=== PATIENT | female | born 1985 | race Caucasian/White ===

== ENCOUNTER → 2018-03-20 12:29 | Observation (INO) ==
--- NOTE | 2018-03-20 09:49 | OB/GYN History & Physical ---
Date of Encounter: 03/20/18 Time of Encounter: 09:40 Assessment and Plan (1) Dehydration during Current visit: Yes Status: Acute 32yo at 29+2wks GA, TATY 06/03/2018, who presents for acute onset nausea, and lower abdominal pressure 1. R/o PTL - R&R NST for GA, no decels - toco quiet, no concern for PTL - SVE: cl/soft/hi, non-laboring, parous cervix - no blood or abnormal discharge appreciated in vault - denies recent intercourse, last seen on 03/10 - RH positive, remaining labs NINA 2. Dehydration in - given 1L IVF, will repeat if needed - labs ordered: UA with reflex, CHEM, UTox - meds: IV pepcid, ODT zofran - OK to po challenge once bolus complete and labs return Dispo: OK to DC patient pending lab values and completion of bolus. Will need to PO challenge. Once patient successful with above, OK to discharge to home with PTL precaution(s). MD SALLIE History of Present Illness Chief complaint: Nausea/vomiting HPI: Ms. Beltran is a 32 year old female 32yo female at 29+2wks GA who presents from home with persistent nausea. Patient is UTD with PNC via Dr. Vlilareal at [facility]. LAST SEEN on 03/10, s/p 28wk labs. Normal labs, Rh positive. Patient reports 24 hours of nausea, unable to tolerate PO. Has felt pressure below, but denies contraction(S). Hx of FT , not currently on progesterone. Reports good FM. Denies VB/LOF. Otherwise patient is uncomplicated without concern for PTL. Presents with FOB at bedside. Past Med Surg Social Fam HX - Past Medical History Medical history: non-contributory Additional medical history: brain bleed Psychiatric history: no psych history - Past Surgical History Additional surgical history: 2 D&C. surgery for brain bleed - Social History Smoking Status: 2nd Hand Smoke Exposure Smokeless Tobacco Status: No Alcohol use: none Drug use: none Obstetrical History - Pregnancies : 5 Para: 2 Term: 2 : 0 Ab's: 2 Livin Medications and Allergies Pnv Plus Multivit Tab 1 cap PO DAILY 10/25/17 [History] Zofran PO 3-4XD PRN 02/25/18 [History] Allergy/AdvReac Type Severity Reaction Status Date / Time Amoxicillin Allergy Rash Verified 02/25/18 09:43 aspirin [ASA] Allergy See Verified 02/25/18 09:43 Comments Penicillins [PCN] Allergy Hives Verified 02/25/18 09:43 Sulfa (Sulfonamide Allergy Hives Verified 02/25/18 09:43 Antibiotics) sulfamethoxazole Allergy Rash Verified 02/25/18 09:43 [From Bactrim] trimethoprim [From Bactrim] Allergy Rash Verified 02/25/18 09:43 NSAIDS (Non-Steroidal AdvReac See Verified 02/25/18 09:43 Anti-Inflamma Comments Review of System OB All systems PM: reviewed and no additional remarkable complaints except as stated Exam - Constitutional Constitutional: well developed, mild distress - HEENT HEENT: Normocephaly, Mucus Membranes Moist - Neck Neck exam: full ROM - Abdomen Abdomen: Present: gravid, non tender - Extremities Extremities exam: radial pulses palpable and symmetrical Deep Tendon Reflex Grade: 2+ Normal - Vagina Vagina: Present: normal moisture - Cervix Dilation: 0 Effacement: 50 Station: -3 - Uterus Uterus exam: Present: normal size - Anus/Rectum Anus/Rectum: Present: normal perianal skin Results All other labs normal. - VTE Reasons for not Prescribing Prophylaxis: Treatment not Indicated - Low risk for VTE
[2018-03-20 11:19] LABS: Bilirubin,Urine Negative (Negative); Blood,Urine Negative (Negative); Clarity,Urine Clear (Clear); Color,Urine Yellow (Yellow); Glucose,Urine (UA) Normal (Normal); Ketones,Urine 15 mg/dL (Negative); Leukocyte Esterase,Urine Negative (Negative); Nitrite,Urine Negative (Negative); Protein,Urine Negative (Neg-Trace); Specific Gravity,Urine 1.014 (1.010-1.025); Urobilinogen,Urine Normal (Normal)
[2018-03-20 11:29] LABS: Amphetamine Screen,Urine Negative ng/mL (Cutoff=1000); Barbiturate Screen,Urine Negative ng/mL (Cutoff=200); Benzodiazepines Screen,Urine Negative ng/mL (Cutoff=200); Cannabinoid Screen,Urine Negative ng/mL (Cutoff = 50); Cocaine Screen,Urine Negative ng/mL (Cutoff= 300); Opiate Screen,Urine Negative ng/mL (Cutoff=300); Phencyclidine Screen,Urine Negative ng/mL (Cutoff=25)
[2018-03-20 11:41] LABS: Alanine Aminotransferase 10 Units/L (7-52); Albumin 3.7 g/dL (3.5-5.7); Albumin/Globulin Ratio 1.4 (1.1-2.2); Alkaline Phosphatase 85 Units/L (34-104); Aspartate Amino Transferase 12 Units/L (13-39); BUN/Creatinine Ratio 16 (6-26); Bilirubin,Total 0.4 mg/dL (0.3-1.0); Blood Urea Nitrogen 8 mg/dL (6-20); Calcium 8.7 mg/dL (8.6-10.3); Carbon Dioxide 23 mEq/L (23-29); Chloride 107 mEq/L (98-107); Globulin 2.6 g/dL (2.4-3.5); Glucose 92 mg/dL (70-105); Osmolality,Calculated 280 (280-300); Potassium 3.7 mEq/L (3.5-5.1); Sodium 136 mEq/L (136-145); Total Protein 6.3 g/dL (6.4-8.9); eGFR For Non-African Americans > 60 (> 60)
[~2018-03-20 12:29] MED LIST: Famotidine 20 MG/2 ML VIAL IVP ONE; Ondansetron ODT 4 MG TAB.RAPDIS SL ONE; Ringers Solution, Lactated 1,000 ML IVC ONE
== END | disposition home or self-care (01) ==
LOC: 1NENULAB
PROVIDERS: ADMIT Advanced Practice Midwife; ATTEND Advanced Practice Midwife

== ENCOUNTER → 2018-05-24 21:55 | Observation (INO) ==
[2018-05-24 20:57] LABS: Amphetamine Screen,Urine Negative ng/mL (Cutoff=1000); Barbiturate Screen,Urine Negative ng/mL (Cutoff=200); Benzodiazepines Screen,Urine Negative ng/mL (Cutoff=200); Cannabinoid Screen,Urine Negative ng/mL (Cutoff = 50); Cocaine Screen,Urine Negative ng/mL (Cutoff= 300); Opiate Screen,Urine Negative ng/mL (Cutoff=300); Phencyclidine Screen,Urine Negative ng/mL (Cutoff=25)
--- NOTE | 2018-05-24 21:56 | Discharge Summary ---
Date of Encounter: 05/24/18 Time of Encounter: 21:55 - Discharge Diagnosis (1) NST (non-stress test) reactive Priority: Secondary Status: Acute Comments: FHR 145 bpm, moderate variability, +15x15 accels, no decels. (2) False labor after 37 completed weeks of gestation Priority: Secondary Status: Acute Comments: Patient was admitted for labor evaluation. SVE without change after >1 hour. She has an appointment with Dr. Villareal on Saturday05/27/18. Encouraged to return if contractions become more intense, if she feels SROM or has bright red vaginal bleeding. (3) 38 weeks gestation of Priority: Primary Status: Acute Comments: Admitted to observation for labor evaluation - Discharge Medications Home Medications: Pnv Plus Multivit Tab 1 cap PO DAILY 10/25/17 [History] Esomeprazole Magnesium [Nexium 24Hr] 1 tab PO DAILY 05/12/18 [History] Allergies/Adverse Reactions: Allergy/AdvReac Type Severity Reaction Status Date / Time Amoxicillin Allergy Rash Verified 05/21/18 23:55 aspirin [ASA] Allergy See Verified 05/21/18 23:55 Comments Penicillins [PCN] Allergy Hives Verified 05/21/18 23:55 Sulfa (Sulfonamide Allergy Hives Verified 05/21/18 23:55 Antibiotics) sulfamethoxazole Allergy Rash Verified 05/21/18 23:55 [From Bactrim] trimethoprim [From Bactrim] Allergy Rash Verified 05/21/18 23:55 NSAIDS (Non-Steroidal AdvReac See Verified 05/21/18 23:55 Anti-Inflamma Comments Data Procedures and tests throughout hospitalization: Laboratory Tests 05/24/18 20:26 Urine Opiates Screen Negative Ur Barbiturates Screen Negative Ur Phencyclidine Scrn Negative Ur Amphetamines Screen Negative U Benzodiazepines Scrn Negative Urine Cocaine Screen Negative U Marijuana (THC) Screen Negative Ur Drug Screen Interp See Below Labs on day of discharge: Labs from last 24 hours 05/24/18 20:26 Urine Opiates Screen Negative Ur Barbiturates Screen Negative Ur Phencyclidine Scrn Negative Ur Amphetamines Screen Negative U Benzodiazepines Scrn Negative Urine Cocaine Screen Negative U Marijuana (THC) Screen Negative Ur Drug Screen Interp See Below Date of admission: 05/24/18 20:10 Discharging clinician: Rosio Baker Anticipated date of discharge: 05/24/18 - Patient Status Disposition: Home, Self-Care Condition: Good Functional capacity at discharge: independent ambulation Overall status at discharge: patient is progressing back to baseline - Discharge Instructions Additional Instructions: Keep OB appointments LABOR AND DELIVERY DISCHARGE INSTRUCTIONS Signs and Symptoms to be Reported to your Doctor Immediately: * Sudden gush, continuous or intermittent lead of fluid from vagina (note the time of gush and color of fluid) * Onset of bright red vaginal bleeding with or without pain (if you had a vaginal exam during this visit you may notice some dark red spotting. This is normal.) * Contractions that are 5 minutes apart (from the beginning of one contraction to the beginning of the next) and last 45-60 seonds; contractions that you can no longer walk, talk or laugh through. * A change in the baby's activity. This could be an increase or decrease in activity. * Severe headache which does not go away with tylenol. * Sudden swelling in the face, hands, arms and/or legs. * Upper abdominal pain - sometimes associated with heartburn or nausea and is not relieved by Maalox, Mylanta or Tums. * Kick Counts __ One hour after a meal, lay down on one side in a quiet place. Count the number of time the baby moves during an hour. If less than 6 movements, notify your physician Diet: *Force fluids, 8 to 10 tall glasses of fluid per day - may include popsicles and jello *Limit caffeine - this includes chocolate, coffee, tea, any soft drink containing such as all yvrose, Kofi Yellow and Mountain Dew - Diet and Activity Activity: resume usual activities as tolerated Diet: regular diet Hospital Course TODDLER GUIDE Hospital course: Sadie is a at 38 weeks or days who presents with complaints of contractions all day today. She reports positive movement, denies vaginal bleeding and leakage of fluid. She is without cervical change and greater than one hour and less than 39 weeks. Her contractions were irregular while she was here on the monitor. Her baby has a reactive tracing. She was given labor precautions and is to follow-up as scheduled with Dr. Villareal in 3 days, 05/27/2018. Time Attestation: Total time spent providing and/or coordinating discharge services: Time Spent: Less than 30 minutes Exam - Constitutional General appearance IM: cooperative, A&O X 3, pleasant, no acute distress, answers questions appropriately - Respiratory Respiratory exam: Present: CTAB - Cardiovascular Cardiovascular exam IM: Present: RRR, +S1, +S2 - GI/Abdominal GI/Abdominal exam IM: normal bowel sounds, soft - Rectal Rectal exam: deferred - Extremities Exam Extremities exam IM: Present: full ROM, normal capillary refill, normal inspection - Neurological Exam Neurological exam: alert, normal gait, oriented X3, reflexes normal - VTE Reasons for not Prescribing Prophylaxis: Treatment not Indicated - Low risk for VTE
== END | disposition home or self-care (01) ==
LOC: 1NENULAB
PROVIDERS: ADMIT Registered Nurse; ATTEND Registered Nurse

== ENCOUNTER 2018-05-29 09:34 | Inpatient (IN) ==
[~2018-05-29 09:34] MED LIST changes: -Famotidine 20 MG/2 ML VIAL IVP ONE; +Methylergonovine 0.2 MG/ML AMPUL IM ONE; -Ondansetron ODT 4 MG TAB.RAPDIS SL ONE; -Ringers Solution, Lactated 1,000 ML IVC ONE
[2018-05-29] MEDS ORDERED: Ondansetron 4 MG/2 ML VIAL IVP PRN (10:00)
[2018-05-29] MEDS ORDERED: *HR* Nalbuphine 10 MG/ML AMPUL IVP PRN (10:00)
[2018-05-29] MEDS ORDERED: Metoclopramide 10 MG/2 ML VIAL IVP PRN (10:00)
[2018-05-29] MEDS ORDERED: Famotidine 20 MG/2 ML VIAL IVP PRN (10:00)
[2018-05-29] MEDS ORDERED: Naloxone 0.4 MG/ML INJ IVP PRN (10:00)
[2018-05-29] MEDS ORDERED: Ringers Solution, Lactated 1,000 ML IVC SCH (10:00)
[2018-05-29 10:34] LABS: Basophils % 0.3 %; Eosinophils # 0.1 K/mcL (0.0-0.6); Eosinophils % 0.6 %; Hematocrit 34.6 % (35.3-44.9); Hemoglobin 12.1 g/dL (11.5-15.4); Immature Granulocytes % 0.4 % (0-4); Lymphocytes # 3.3 K/mcL (0.6-4.6); Lymphocytes % 28.5 %; Mean Corpuscular Hemoglobin 31.3 pg (28.0-33.3); Mean Corpuscular Volume 89.4 fL (83.0-100.0); Mean Platelet Volume 11.4 fL (9.4-12.4); Monocytes # 0.7 K/mcL (0.0-1.3); Neutrophils # 7.5 K/mcL (1.6-8.9); Platelet Count 166 K/mcL (140-400); Red Blood Count 3.87 M/mcL (3.82-4.97); Red Cell Distribution Width 12.6 % (11.5-14.5); Segmented Neutrophils % 64.2 %
[2018-05-29 10:38] LABS: Amphetamine Screen,Urine Negative ng/mL (Cutoff=1000); Barbiturate Screen,Urine Negative ng/mL (Cutoff=200); Benzodiazepines Screen,Urine Negative ng/mL (Cutoff=200); Cannabinoid Screen,Urine Negative ng/mL (Cutoff = 50); Cocaine Screen,Urine Negative ng/mL (Cutoff= 300); Opiate Screen,Urine Negative ng/mL (Cutoff=300); Phencyclidine Screen,Urine Negative ng/mL (Cutoff=25)
[2018-05-29] MEDS ORDERED: Clindamycin 900 MG/50 ML 900 MG/50 ML IV.SOLN IVPB SCH (11:00)
[2018-05-29] MEDS ORDERED: Oxytocin 20 units/ LR 1000 mL 20 UNIT/1,000 ML BAG IVC SCH ×2 (11:00→16:55)
--- NOTE | 2018-05-29 11:11 | Anesthesia Evaluation PreOp ---
Date of Encounter: 05/29/18 Time of Encounter: 11:09 - Past History Planned Operation: SHAW Cardiac History: Denies any Significant Hx Pulmonary History: Former smoker, Smoking Cessation (within the past year--smoked for 13 years) MOLD PRESSER History: Denies Any Significant HX Other Medical History: Denies Any Significant HX Anesthesia History: No Prior Anesthetic Complications (previous SHAW x 2--no complications; denies personal and family h/o GA complications) : Yes Alcohol Use: none Drug use: none Medications and Allergies Pnv Plus Multivit Tab 1 cap PO DAILY 10/25/17 [History] Esomeprazole Magnesium [Nexium 24Hr] 1 tab PO DAILY 05/12/18 [History] Allergy/AdvReac Type Severity Reaction Status Date / Time Amoxicillin Allergy Rash Verified 05/21/18 23:55 aspirin [ASA] Allergy See Verified 05/21/18 23:55 Comments Penicillins [PCN] Allergy Hives Verified 05/21/18 23:55 Sulfa (Sulfonamide Allergy Hives Verified 05/21/18 23:55 Antibiotics) sulfamethoxazole Allergy Rash Verified 05/21/18 23:55 [From Bactrim] trimethoprim [From Bactrim] Allergy Rash Verified 05/21/18 23:55 NSAIDS (Non-Steroidal AdvReac See Verified 05/29/18 10:42 Anti-Inflamma Comments - Meds/Allergy Pre-op Review Medications Reviewed: Yes Allergies Reviewed: Yes Beta Blockers on Current Med List: No Anesthesia Results - Labs 05/29/18 10:09 Anesthesia Exam NPO (# of Hours): solids > 6hrs Pain Scale: 0 Pain Scale Used: Numeric (1 - 10) - HEENT Pupil (Motor): Pupils equal Mallampati: II Teeth: Normal Oral Opening: Greater than 3 - MOLD PRESSER LOC: Oriented MOLD PRESSER Motor: Normal RUE, Normal LUE, Normal RLE, Normal LLE, Normal Face MOLD PRESSER Sensory: Normal: RUE, LUE, RLE, LLE, Face - Cardiac Rhythm: Regular Murmur: None - Pulmonary Breath Sounds: bilateral Clear Respiratory Effort: Symmetrical Anesthesia Assess/Plan ASA Score: 2 Level of consciousness: Cooperative, Oriented, Tranquil Anesthetic Plan: Epidural Autologous Blood: No Monitoring Plan: Standard Monitors Recovery Plan: Other
[2018-05-29] MEDS ORDERED: *HR* FentaNYL (PF) 100 MCG/2 ML VIAL EP ONE (11:13)
[2018-05-29] MEDS ORDERED: Bupivacaine-MPF 0.25% 10 ML VIAL EP ONE (11:13)
[2018-05-29] MEDS ORDERED: Epidural Premix (fent/bupiv) 110 ML EP SCH (11:15)
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
[2018-05-29] MEDS ORDERED: Lidocaine -MPF 1% 5 ML AMPUL ONE (13:46)
[2018-05-29] MEDS ORDERED: *HR* FentaNYL (PF) 100 MCG/2 ML VIAL ONE (13:46)
[2018-05-29] MEDS ORDERED: Bupivacaine-MPF 0.25% 10 ML VIAL ONE (13:46)
--- NOTE | 2018-05-29 15:06 | Anesthesia Procedures ---
Addendum entered and electronically signed by Christopher Patel CRNA 05/29/18 16:22: Delivery Date: 05/29/18 Delivery Time: 15:18 Original Note: Date of Encounter: 05/29/18 Time of Encounter: 15:04 Procedures: Anesthesia - Epidural/Spinal Patient ID/Chart reviewed: Yes Patient examined: Yes OB Eval: Gestational age: 39 weeks 2 days OB Eval: : 5 OB Eval: Hx Para: 2 OB Eval: Dilated at (cm): 6 OB Eval: Contractions: Non-stressed pattern Consent Obtained: Yes Supplemental Oxygen: None/Room Air Site Prep: Aseptic Technique, Sterile prep and drape, Povidone-Iodine 1% Patient position: upright Local Anesthetic: Lidocaine 1% Amount of Local Anesthetic used: 5 Touhy Needle Gauge: 18 Touhy Needle Depth (cm): 5 Catheter Depth at Skin (cm): 10 Test Dose (1.5% Lido + Epi): Volume given (mls): 5 Test Dose Result: Negative Loading Dose: 0.25% Marcaine (mls): 10 Loading Dose: Fentanyl (mcg): 100 Loading Dose Administered: Thru Catheter Infusion Med: 0.125% Bupivacaine w/ 2 mcg/ml Fentanyl Infusion Rate (mls/hr): [address]: Tegaderm, Tape Interspace Used: L3-L4 Loss of Resistance (MISHA): Yes Blood: No CSF: No Paresthesia: No Procedure: successful x 2 attempts; patient was experiencing some discomfort with Tuohy adv ancement despite use of 1% lido skin infiltration; VSS Vitals + FHT's: see MICHEL Tipton's electronic records for VS entry
--- NOTE | 2018-05-29 15:36 | OB/GYN Procedure Note ---
Delivery - Delivery Date: 05/29/18 Provider: Darryl Bledsoe Intrapartum events: none Delivery induction: AROM Delivery augmentation: pitocin Delivery monitor: external FHT, external uterine Anesthesia: epidural Quantitated Blood Loss: 300 - (s) Infant A Delivery Date: 05/29/18 Infant Delivery Time: 15:18 Presentation: vertex Position: OA Route of delivery: Gender: Male Viability: Viable Pounds: 7 Ounces: 15 Weight Gram: 3.6 kg at 1 minute: 8 at 5 mins: 9 Shoulder Dystocia: not encountered Specimens collected: cord blood Placenta: uterine exploration Cord: 3 umbilical vessels - Repair Episiotomy: none Laceration Description: None - Complications Delivery complications: none - Disposition Mom disposition: stable in LDR disposition: stable in LDR - Comments Comments: Patient progressed rapidly to complete and pushing and had a spontaneous vaginal delivery of a male infant over an intact perineum. Infant's head was in the perineum easily with 1 push. The rest the infant was then delivered. Push. cried immediately upon delivery. Cord was clamped cut after 1 minute. Cord blood was obtained. The placenta was delivered partially and then via uterine exploration. It appeared to be somewhat attached at the fundus. I was able to release this easily. I explored the uterus and then checked the placenta. I feel the entire placenta was present. Patient's uterus was boggy and was given a dose of IM Methergine. The uterus contracted down nicely. There are no cervical vaginal periurethral or perineal lacerations noted. Patient delivered a male weight was 7 lbs. 15 oz. with 8, 9 Apgars. Blood loss is 300 mL.
[2018-05-29] MEDS ORDERED: Measles/Mumps/Rubella Vacc 0.5 ML VIAL SQ PRN (16:55)
[2018-05-30] MEDS: Acetaminophen 325 MG TABLET PO PRN ×2 (01:16→07:48)
--- NOTE | 2018-05-30 08:02 | Discharge Summary ---
Date of Encounter: 05/30/18 Time of Encounter: 07:59 - Discharge Diagnosis (1) Vaginal delivery Priority: Primary Status: Acute Comments: Patient meeting day 1 milestones Pain well controlled with Tylenol 48 hour observation for GBS status unknown in Patient to follow up in 4-[address] Bledsoe - Discharge Medications Prescriptions: Acetaminophen [Tylenol] 650 mg PO Q6HR PRN #60 tablet PRN Reason: Mild Pain Home Medications: Pnv Plus Multivit Tab 1 cap PO DAILY 10/25/17 [History] Esomeprazole Magnesium [Nexium 24Hr] 1 tab PO DAILY 05/12/18 [History] Acetaminophen [Tylenol] 650 mg PO Q6HR PRN #60 tablet 05/30/18 [Rx] Allergies/Adverse Reactions: Allergy/AdvReac Type Severity Reaction Status Date / Time Amoxicillin Allergy Rash Verified 05/21/18 23:55 aspirin [ASA] Allergy See Verified 05/21/18 23:55 Comments Penicillins [PCN] Allergy Hives Verified 05/21/18 23:55 Sulfa (Sulfonamide Allergy Hives Verified 05/21/18 23:55 Antibiotics) sulfamethoxazole Allergy Rash Verified 05/21/18 23:55 [From Bactrim] trimethoprim [From Bactrim] Allergy Rash Verified 05/21/18 23:55 NSAIDS (Non-Steroidal AdvReac See Verified 05/29/18 10:42 Anti-Inflamma Comments Data Procedures and tests throughout hospitalization: Laboratory Tests 05/29/18 05/29/18 10:09 10:09 WBC 11.6 H RBC 3.87 Hgb 12.1 Hct 34.6 L MCV 89.4 MCH 31.3 MCHC 35.0 RDW 12.6 Plt Count 166 MPV 11.4 Immature Gran % 0.4 Seg Neutrophils % 64.2 Lymphocytes % 28.5 Monocytes % 6.0 Eosinophils % 0.6 Basophils % 0.3 Neutrophils # 7.5 Lymphocytes # 3.3 Monocytes # 0.7 Eosinophils # 0.1 Basophils # 0.0 Urine Opiates Screen Negative Ur Barbiturates Screen Negative Ur Phencyclidine Scrn Negative Ur Amphetamines Screen Negative U Benzodiazepines Scrn Negative Urine Cocaine Screen Negative U Marijuana (THC) Screen Negative Ur Drug Screen Interp See Below Labs on day of discharge: Labs from last 24 hours 05/29/18 05/29/18 10:09 10:09 WBC 11.6 H RBC 3.87 Hgb 12.1 Hct 34.6 L MCV 89.4 MCH 31.3 MCHC 35.0 RDW 12.6 Plt Count 166 MPV 11.4 Immature Gran % 0.4 Seg Neutrophils % 64.2 Lymphocytes % 28.5 Monocytes % 6.0 Eosinophils % 0.6 Basophils % 0.3 Neutrophils # 7.5 Lymphocytes # 3.3 Monocytes # 0.7 Eosinophils # 0.1 Basophils # 0.0 Urine Opiates Screen Negative Ur Barbiturates Screen Negative Ur Phencyclidine Scrn Negative Ur Amphetamines Screen Negative U Benzodiazepines Scrn Negative Urine Cocaine Screen Negative U Marijuana (THC) Screen Negative Ur Drug Screen Interp See Below Date of admission: 05/29/18 09:34 Primary care physician: PCP NONE Consults: 05/29/18 16:55 Consult to Warehouse Delivery Driver [CONS] Routine Comment: Vaginal delivery, consult needed Discharging clinician: Eva Isaac Anticipated date of discharge: 05/30/18 - Patient Status Disposition: Home, Self-Care Condition: Good Functional capacity at discharge: independent ambulation - Discharge Instructions Follow Up With: NONE,PCP [Primary Care Provider] - Darryl Bledsoe MD [Partnered Physician] - - Diet and Activity Activity: increase activity as tolerated Diet: regular diet Hospital Course Reason for admission: active labor Delivery: Episiotomy: none Laceration: none Other procedures: none complications: none Discharge diagnosis: IUP at term delivered [place] baby: male (bottle feeding) Time Attestation: Total time spent providing and/or coordinating discharge services: Time Spent: Less than 30 minutes Exam - Constitutional Vitals: Temp Pulse Resp BP Pulse Ox 98.2 F 68 14 103/68 96 05/30/18 05:00 05/30/18 05:00 05/30/18 05:00 05/30/18 05:00 05/30/18 05:00 General appearance IM: A&O X 3, pleasant, answers questions appropriately - Respiratory Respiratory exam: Present: CTAB - Cardiovascular Cardiovascular exam IM: Present: RRR, +S1, +S2 - GI/Abdominal GI/Abdominal exam IM: normal bowel sounds - Uterine Tone: Firm Uterus Position: At Umbilicus, Midline - Extremities Exam Extremities exam IM: Present: full ROM, normal capillary refill, normal inspection - Neurological Exam Neurological exam: alert, oriented X3, reflexes normal
[2018-05-30 08:08] VITALS: BP 111/74
[2018-05-30] MEDS ORDERED: Prenatal Vit/FA 1 EACH TABLET PO SCH (09:00)
== END 2018-05-30 11:30 | disposition home or self-care (01) | DRG 560 ==
LOC: 1NENULAB 09:34 → 1NENUOBS 16:54
PROVIDERS: ADMIT Obstetrics & Gynecology; ATTEND Obstetrics & Gynecology

== ENCOUNTER 2020-05-09 07:50 | Inpatient (IN) ==
[2020-05-09] MEDS ORDERED: Famotidine 20 MG/2 ML VIAL IVP ONE (08:29)
[2020-05-09] MEDS ORDERED: Metoclopramide 10 MG/2 ML VIAL IVP ONE (08:29)
[2020-05-09] MEDS ORDERED: Ringers Solution, Lactated 1,000 ML ONE ×2 (08:48→09:30)
[2020-05-09] MEDS ORDERED: *HR* Midazolam HCl 2 MG/2 ML VIAL ONE (09:26)
[2020-05-09] MEDS ORDERED: *HR* FentaNYL (PF) 100 MCG/2 ML VIAL ONE (09:26)
[2020-05-09] MEDS ORDERED: *HR* Propofol 200 MG/20 ML VIAL IVP ONE (09:27)
[2020-05-09] MEDS ORDERED: Dexamethasone 4 MG/ML VIAL ONE (09:29)
[2020-05-09] MEDS ORDERED: Ondansetron 4 MG/2 ML VIAL ONE (09:29)
[2020-05-09 09:34] LABS: Amphetamine Screen,Urine Negative ng/mL (Cutoff=1000); Barbiturate Screen,Urine Negative ng/mL (Cutoff=200); Benzodiazepines Screen,Urine Negative ng/mL (Cutoff=200); Cannabinoid Screen,Urine Negative ng/mL (Cutoff = 50); Cocaine Screen,Urine Negative ng/mL (Cutoff= 300); Opiate Screen,Urine Negative ng/mL (Cutoff=300); Phencyclidine Screen,Urine Negative ng/mL (Cutoff=25)
[2020-05-09 09:47] LABS: Basophils % 0.3 %; Eosinophils # 0.2 K/mcL (0.0-0.6); Eosinophils % 2.2 %; Hematocrit 39.9 % (35.3-44.9); Hemoglobin 13.1 g/dL (11.5-15.4); Immature Granulocytes % 0.1 % (0-4); Immature Platelets 9.3 % (1.1-6.1); Lymphocytes # 2.6 K/mcL (0.6-4.6); Lymphocytes % 37.6 %; Mean Corpuscular HGB Conc 32.8 g/dL (31.6-35.5); Mean Corpuscular Hemoglobin 31.6 pg (28.0-33.3); Mean Corpuscular Volume 96.4 fL (83.0-100.0); Mean Platelet Volume 11.9 fL (9.4-12.4); Monocytes # 0.5 K/mcL (0.0-1.3); Monocytes % 7.3 %; Neutrophils # 3.6 K/mcL (1.6-8.9); Nucleated Red Blood Cells 0.3 /100 WBC (0); Platelet Count 124 K/mcL (140-400); Red Blood Count 4.14 M/mcL (3.82-4.97); Red Cell Distribution Width 12.6 % (11.5-14.5); Segmented Neutrophils % 52.5 %; White Blood Count 6.9 K/mcL (4.3-11.1)
[2020-05-09] MEDS ORDERED: Ketorolac 30 MG/ML VIAL ONE (10:12)
[2020-05-09] MEDS ORDERED: Methylergonovine 0.2 MG/ML AMPUL IM ONE (11:59)
[2020-05-09 13:03] VITALS: BP 105/66
== END 2020-05-09 12:00 | disposition home or self-care (01) | DRG 543 ==
LOC: SAMDAY 08:06 → 1NENULAB 08:07
PROVIDERS: ADMIT Obstetrics & Gynecology; ATTEND Obstetrics & Gynecology